=== PATIENT | male | born 1940 | race Caucasian/White ===

== ENCOUNTER 2020-09-10 09:50 | Inpatient (IN) ==
[2020-09-10] MEDS ORDERED: CeFAZolin Syr 2,000MG/20 ML 2,000 MG/20 ML SYRINGE IVPB ONE (10:17)
[2020-09-10] MEDS ORDERED: *HR* OxyCODONE Immed Rel 5 MG TABLET PO PRN (10:21)
[2020-09-10] MEDS ORDERED: *HR* HYDROmorphone PF 0.5 MG/0.5 ML SYRINGE IVP PRN (10:21)
[2020-09-10] MEDS ORDERED: Ondansetron 4 MG/2 ML VIAL IVP PRN ×2 (10:21→15:30)
[2020-09-10] MEDS ORDERED: *HR* FentaNYL (PF) 100 MCG/2 ML VIAL ONE (10:25)
[2020-09-10] MEDS ORDERED: *HR* Propofol 200 MG/20 ML VIAL IVP ONE (10:25)
[2020-09-10] MEDS ORDERED: Ondansetron 4 MG/2 ML VIAL ONE (10:25)
[2020-09-10] MEDS ORDERED: Lidocaine -MPF 2% 2 ML VIAL ONE ×2 (10:25→13:37)
[2020-09-10] MEDS ORDERED: Dexamethasone 4 MG/ML VIAL ONE (10:25)
[2020-09-10] MEDS ORDERED: *HR* Succinylcholine 200 MG/10 ML VIAL IVP ONE (10:25)
[2020-09-10] MEDS ORDERED: Lidocaine HCL 4 ML Topical Solution (Laryng-O-Jet Kit Sterile Pak) TP ONE (10:25)
[2020-09-10] MEDS ORDERED: *HR* Rocuronium Bromide 50 MG/5 ML VIAL ONE ×2 (10:25→12:49)
[2020-09-10] MEDS ORDERED: Ringers Solution, Lactated 1,000 ML IVC SCH ×2 (10:30)
[2020-09-10] MEDS ORDERED: Heparin 1,000 UNITS/500 mL 500 ML ONE (10:48)
[2020-09-10] MEDS ORDERED: Heparin 1,000 UNITS/500 mL 2,500 ML ONE (10:51)
[2020-09-10] MEDS ORDERED: *HR* Heparin 5,000 UNIT/ML VIAL ONE (10:55)
[2020-09-10] MEDS ORDERED: EPHEDrine 50 MG/ML VIAL ONE (10:55)
[2020-09-10] MEDS ORDERED: *HR* Midazolam HCl 2 MG/2 ML VIAL ONE (11:28)
[2020-09-10] MEDS ORDERED: ceFAZolin 1,000 MG, Sodium Chloride IRRigation 1,000 ML IR ONE (11:35)
[2020-09-10] MEDS ORDERED: NiCARdipine 2.5 MG/10 ML Syringe IVPB ONE (12:37)
[2020-09-10] MEDS ORDERED: *HR* Vasopressin 20 UNIT/ML VIAL ONE (12:37)
[2020-09-10] MEDS ORDERED: Sugammadex Sodium 200 MG/2 ML VIAL IV ONE (13:26)
[2020-09-10] MEDS ORDERED: *HR* HYDROMORPHONE 2 MG/ML VIAL ONE (13:34)
[2020-09-10] MEDS ORDERED: *HR* HYDROcodone/Acet 5/325 mg TABLET PO PRN (15:30)
[2020-09-10] MEDS ORDERED: *HR* Labetalol 20 MG/4 ML SYRINGE IVP PRN (15:30)
[2020-09-10] MEDS ORDERED: Naloxone 0.4 MG/ML INJ IVP PRN (15:30)
[2020-09-10] MEDS ORDERED: 0.9 % Sodium Chloride 1,000 ML IVC SCH (15:30)
[2020-09-10] MEDS ORDERED: Acetaminophen 325 MG TABLET PO PRN (15:30)
[2020-09-10] MEDS: ceFAZolin 2,000 MG in 0.9 % Sodium Chloride 100 ML IVPB SCH (19:52)
[2020-09-11 04:25] LABS: Hematocrit 36.5 % (37.5-50.1); Mean Corpuscular HGB Conc 33.4 g/dL (31.6-35.5); Mean Corpuscular Hemoglobin 29.5 pg (28.0-33.3); Mean Corpuscular Volume 88.4 fL (83.0-100.0); Mean Platelet Volume 10.6 fL (9.4-12.4); Platelet Count 177 K/mcL (140-400); Red Blood Count 4.13 M/mcL (4.19-5.50); Red Cell Distribution Width 14.9 % (11.5-14.5); White Blood Count 12.7 K/mcL (4.3-11.1)
[2020-09-11 04:27] LABS: Hemoglobin 12.2 g/dL (12.9-16.9)
[2020-09-11 04:43] LABS: BUN/Creatinine Ratio 28 (6-26); Blood Urea Nitrogen 22 mg/dL (8-23); Calcium 8.8 mg/dL (8.6-10.3); Carbon Dioxide 29 mEq/L (23-29); Chloride 105 mEq/L (98-107); Glucose 131 mg/dL (70-105); Osmolality,Calculated 291 (280-300); Potassium 3.7 mEq/L (3.5-5.1); Sodium 138 mEq/L (136-145); eGFR For African Americans > 60 (> 60); eGFR For Non-African Americans > 60 (> 60)
[2020-09-11] MEDS: ceFAZolin 2,000 MG in 0.9 % Sodium Chloride 100 ML IVPB SCH ×2 (05:00→13:19)
[2020-09-11] MEDS ORDERED: Aspirin Enteric Coated 81 MG Tablet PO SCH (09:00)
[2020-09-11] MEDS ORDERED: hydroCHLOROthiazide 25 MG TABLET PO SCH (09:00)
[2020-09-11 13:27] VITALS: BP 118/88
== END 2020-09-11 18:13 | disposition home or self-care (01) | DRG 269 ==
LOC: SAMDAY 09:50 → 2NNU 10:32
PROVIDERS: ADMIT Surgery Vascular Surgery; ATTEND Surgery Vascular Surgery